=== PATIENT | male | born 2000 | race Two or more races ===

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

== ENCOUNTER 2021-03-02 23:02 | Emergency (ER) | payer MEDICAID ==
[~2021-03-02] VITALS: Ht 182.9 cm; Wt 65.8 kg
[2021-03-03 02:50] VITALS: BP 115/82
[2021-03-03] MEDS ORDERED: KETOROLAC TROMETH 60MG/2ML VIAL IM ONE (03:30)
[2021-03-03] MEDS ORDERED: methylPREDNISolone SOD SUCC 125 MG/2 ML VL IM ONE (03:30)
== END 2021-03-03 04:17 | disposition home or self-care (01) ==
LOC: ER 23:03
DX: S06.0X9A Concussion with loss of consciousness of unspecified duration, initial encounter (principal); M54.16 Radiculopathy, lumbar region; M62.838 Other muscle spasm; M25.552 Pain in left hip; M25.551 Pain in right hip; M25.562 Pain in left knee; M25.561 Pain in right knee; V49.49XA Driver injured in collision with other motor vehicles in traffic accident, initial encounter; Y93.89 Activity, other specified; Y92.410 Unspecified street and highway as the place of occurrence of the external cause; Y99.8 Other external cause status
CPT/HCPCS: 70450; 72125; 72131; 72170; 73562; 96372; 99285; J1885; J2930